=== PATIENT | female | born 1960 | race Two or more races ===

== ENCOUNTER 2019-06-26 16:26 | Emergency (ER) | payer OTHER ==
[~2019-06-26] VITALS: Ht 157.5 cm; Wt 63.5 kg
[~2019-06-26 16:26] MED LIST: ATACAND HCT 11 UDTAB PO; ATACAND16 MG PO; AVELOX ABC PAC400 MG PO; NEURON; NORVASC5 MG; PROVENTIL0.5 ML/2.5 IH; PULMICORT1 MG/2 ML IH; RELAFEN 750MG; SINGULAIR10 MG PO
[2019-06-26] MEDS ORDERED: AVAPRO150 MG (16:53)
== END 2019-06-26 19:21 | disposition home or self-care (01) ==
LOC: ER 16:26
DX: S60.211A Contusion of right wrist, initial encounter (principal); S30.0XXA Contusion of lower back and pelvis, initial encounter; S13.4XXA Sprain of ligaments of cervical spine, initial encounter; V49.9XXA Car occupant (driver) (passenger) injured in unspecified traffic accident, initial encounter; Y93.89 Activity, other specified; Y92.488 Other paved roadways as the place of occurrence of the external cause; Y99.8 Other external cause status

== ENCOUNTER 2022-03-08 12:31 | Emergency (ER) | payer OTHER ==
[~2022-03-08] VITALS: Ht 154.9 cm; Wt 72.6 kg
[~2022-03-08 12:31] MED LIST changes: +AVAPRO150 MG
== END 2022-03-08 18:16 | disposition home or self-care (01) ==
LOC: ER 12:31
DX: M54.50 Low back pain, unspecified (principal); Z88.0 Allergy status to penicillin; J45.909 Unspecified asthma, uncomplicated

== ENCOUNTER 2022-08-14 16:36 | Emergency (ER) | payer OTHER ==
[~2022-08-14] VITALS: Ht 157.5 cm; Wt 63.5 kg
[2022-08-14] MEDS ORDERED: GLUMETZA500 MG PO (17:48)
[2022-08-14] MEDS ORDERED: SYNTHROID100 MCG PO (17:48)
[2022-08-14] MEDS ORDERED: AVAPRO75 MG (17:48)
== END 2022-08-14 19:41 | disposition home or self-care (01) ==
LOC: ER 16:36
DX: M54.32 Sciatica, left side (principal); E11.9 Type 2 diabetes mellitus without complications; Z79.84 Long term (current) use of oral hypoglycemic drugs; Z88.0 Allergy status to penicillin

== ENCOUNTER 2023-08-15 17:58 | Emergency (ER) | payer OTHER ==
[~2023-08-15] VITALS: Ht 157.5 cm; Wt 70.3 kg
[~2023-08-15 17:58] MED LIST changes: +AVAPRO75 MG; +GLUMETZA500 MG PO; +SYNTHROID100 MCG PO
[2023-08-15 20:24] LABS: PH,URINE 7.5 (5.0-8.0); URINE APPEARANCE Clear; URINE BILIRRUBIN Negative (NEGATIVE); URINE COLOR Yellow; URINE GLUCOSE Negative (NEGATIVE); URINE LEUKOCYTE Negative; URINE NITRATE Negative; URINE PROTEIN Negative (NEGATIVE)
[2023-08-15 20:26] LABS: HEMATOCRIT 38.3 % (36.0-45.00); MEAN CELL VOLUME 86.2 fL (80.00-100.00); MEAN CORPUSCULAR HEMOGLOBIN 29.4 pg (27.00-32.0); PLATELET COUNT 216 K/uL (150-450); RED BLOOD COUNT 4.44 M/uL (4.00-6.00); RED CELL DISTRIBUTION WIDTH 13.5 % (11.5-14.5)
[2023-08-15 20:51] LABS: CALCIUM 9.3 mg/dL (8.5-10.1); CREATININE SERUM 1.05 mg/dL (0.55-1.02); GFR 52.93; POTASSIUM 4.9 mEq/L (3.5-5.1)
[2023-08-15 20:58] LABS: URINE BACTERIA 1485.5 uL (0.0-1933); URINE EPITHELIAL CELLS 26.7 uL (0.0-38.8); URINE RBC 54.1 uL (0.0-20.8); URINE WBC 20.3 uL (0.0-23.2)
[2023-08-15 21:05] LABS: URINE BLOOD Trace
[2023-08-15] MEDS ORDERED: INTESTINEX680 M1 PO (22:55)
[2023-08-15] MEDS ORDERED: PEPCID AC20 MG PO (22:55)
[2023-08-15] MEDS ORDERED: CIPRO500 MG PO (22:55)
[2023-08-15] MEDS ORDERED: METRONIDAZOLE500 MG PO (22:55)
[2023-08-15] MEDS ORDERED: DICY20TA PO (22:55)
== END 2023-08-15 23:03 | disposition home or self-care (01) ==
LOC: ER 17:58
PROVIDERS: General Practice
DX: K57.32 Diverticulitis of large intestine without perforation or abscess without bleeding (principal); R10.32 Left lower quadrant pain; I10 Essential (primary) hypertension; E03.9 Hypothyroidism, unspecified; Z88.0 Allergy status to penicillin; E11.9 Type 2 diabetes mellitus without complications; Z79.84 Long term (current) use of oral hypoglycemic drugs
CPT/HCPCS: 36415; 74176; 96365; 96366; J1885; J2405; J3490; J7042

== ENCOUNTER 2024-10-23 10:33 | Emergency (ER) | payer OTHER ==
[~2024-10-23] VITALS: Ht 157.5 cm; Wt 69.9 kg
[~2024-10-23 10:33] MED LIST changes: +CIPRO500 MG PO; +DICY20TA PO; +INTESTINEX680 M1 PO; +METRONIDAZOLE500 MG PO; +PEPCID AC20 MG PO
[2024-10-23] MEDS ORDERED: KETOROLAC TROMETHAMINE 15 MG VIAL IV ONE (11:15)
[2024-10-23] MEDS ORDERED: CIPROFLOXACIN IN 5 % DEXTROSE 400 MG/200 ML PIGGYBAG IV ONE (11:15)
[2024-10-23] MEDS ORDERED: METRONIDAZOLE/SODIUM CHLORIDE 500 MG/100 ML PIGGYBACK IV ONE (11:15)
[2024-10-23 12:31] LABS: HEMATOCRIT 40.7 % (36.0-45.00); HEMOGLOBIN 13.6 g/dL (12.0-15.00); MEAN CELL VOLUME 86.9 fL (80.00-100.00); MEAN CORPUSCULAR HEMOGLOBIN 29.1 pg (27.00-32.0); MEAN CORPUSCULAR HGB CONC 33.4 g/dl (32.0-36.0); PLATELET COUNT 270 K/uL (150-450); RED BLOOD COUNT 4.68 M/uL (4.00-6.00); RED CELL DISTRIBUTION WIDTH 13.7 % (11.5-14.5)
[2024-10-23 12:55] LABS: BILIRUBIN TOTAL 0.64 mg/dL (0.3-1.2); CALCIUM 9.6 mg/dL (8.5-10.1); CREATININE SERUM 0.8 mg/dL (0.55-1.02); GFR 72.21; GLOBULINA 3.9 G/DL (2.4-3.5); POTASSIUM 4.28 mEq/L (3.5-5.1); TOTAL PROTEIN 7.9 gm/dL (6.4-8.2)
== END 2024-10-23 15:31 | disposition home or self-care (01) ==
LOC: ER 10:35
PROVIDERS: General Practice
DX: K57.92 Diverticulitis of intestine, part unspecified, without perforation or abscess without bleeding (principal); R10.9 Unspecified abdominal pain; I10 Essential (primary) hypertension; E11.9 Type 2 diabetes mellitus without complications; Z79.84 Long term (current) use of oral hypoglycemic drugs; Z88.0 Allergy status to penicillin

== ENCOUNTER 2025-02-09 06:05 | Day surgery (SDC) | payer OTHER ==
[2025-02-03 14:59] VITALS: BP 129/78
[~2025-02-09] VITALS: Ht 154.9 cm; Wt 70.3 kg
[~2025-02-09 06:05] MED LIST changes: +EZALLOR SPRINKLE5 MG; +NEURONTIN800 MG PO; +PROTONIX40 MG PO
[2025-02-09] MEDS ORDERED: CLINDAMYCIN PHOSPHATE 150 MG/ML (900mg) ONE (10:58)
[2025-02-09] MEDS ORDERED: MORPHINE SULFATE 4 MG/ML VIAL IV ONE ×3 (14:35→15:15)
== END 2025-02-09 16:25 | disposition home or self-care (01) ==
LOC: CIR.AMB 06:05
PROVIDERS: ATTEND Surgery Surgery of the Hand
DX: M65.841 Other synovitis and tenosynovitis, right hand (principal)